=== PATIENT | female | born 1995 | race Caucasian/White ===

== ENCOUNTER 2024-11-07 17:56 | Emergency (ER) | payer MEDICAID ==
[~2024-11-07] VITALS: Ht 165.1 cm; Wt 68.2 kg
[~2024-11-07 17:56] MED LIST: ACET-1008 PO; HYDR-3965 PO; NO HOME MEDS; ZOV200C PO
[2024-11-07] MEDS: LORazepam 1 MG tablet PO ONE (18:51)
[2024-11-07] MEDS ORDERED: HYDR-3686 PO (19:03)
[2024-11-07 19:12] VITALS: BP 118/70; PULSE 76; RESP 16; TEMP 98.6; O2SAT 98
== END 2024-11-07 19:13 | disposition home or self-care (01) ==
LOC: ER 17:58
DX: F41.9 Anxiety disorder, unspecified (principal); F15.90 Other stimulant use, unspecified, uncomplicated; Z79.1 Long term (current) use of non-steroidal anti-inflammatories (NSAID); Z79.899 Other long term (current) drug therapy
CPT/HCPCS: 93005; 99283